=== PATIENT | female | born 1975 | race Caucasian/White ===

== ENCOUNTER 2017-12-21 08:16 | Outpatient (CLI) | payer OTHER | END 2017-12-21 08:29 | disposition home or self-care (01) | LOC: SONOGRAMA 08:16 | DX: E04.1 Nontoxic single thyroid nodule (principal) ==

== ENCOUNTER 2020-09-11 23:51 | Emergency (ER) | payer OTHER ==
[~2020-09-11] VITALS: Ht 172.7 cm; Wt 77.1 kg
[2020-09-12] MEDS ORDERED: TRAMADOL HCL50 MG PO (05:15)
[2020-09-12] MEDS ORDERED: KEFLEX500 MG PO (05:15)
[2020-09-12] MEDS ORDERED: PHENERGAN25 MG PO (05:15)
[2020-09-12] MEDS ORDERED: TAMS0.4C PO (05:15)
== END 2020-09-12 05:25 | disposition home or self-care (01) ==
LOC: ER 23:51
DX: N20.0 Calculus of kidney (principal); R10.32 Left lower quadrant pain; Z03.818 Encounter for observation for suspected exposure to other biological agents ruled out